=== PATIENT | female | born 1965 | race Caucasian/White ===

== ENCOUNTER 2021-07-05 12:43 | Emergency (ER) | payer OTHER ==
[~2021-07-05] VITALS: Ht 157.5 cm; Wt 71.7 kg
[2021-07-05 12:43] VITALS: BP_SYST 141
[2021-07-05 14:36] VITALS: BP_SYST 116
[2021-07-05] MEDS ORDERED: TRAZ-250 PO (15:12)
== END 2021-07-05 15:20 | disposition home or self-care (01) ==
LOC: SED 12:43
DX: F41.9 Anxiety disorder, unspecified (principal); R07.89 Other chest pain
CPT/HCPCS: 93005; 99283